=== PATIENT | male | born 1960 | race Caucasian/White ===

== ENCOUNTER 2018-06-27 09:42 | Emergency (ER) | payer MEDICAID, OTHER ==
[~2018-06-27] VITALS: Ht 172.7 cm; Wt 75.0 kg
[~2018-06-27 09:42] MED LIST: CLIN300C10 PO; HYDR-3498 PO; IBUP-1542 PO
[2018-06-27 09:47] VITALS: BP 158/78; PULSE 87; RESP 18; Ht 172.7 cm; Wt 75.0 kg
--- NOTE | 2018-06-27 09:49 | ERD ---
ER Documentation Chief Complaint Chief Complaint HPI This is a 57-year-old male that presents to the emergency department complaining of lower back pain. The patient is under custody. Indicates the back pain is been present since he was arrested and indicated the [employer] police officer stepped on his back. He denies any numbness or tingling of his lower extremities. He states the pain is exacerbated by movement. He states that 6 out of 10 in in tensity. He does have a history of sciatica but states this pain is different. He denies any changes in his bladder or bowel frequency. He has had no fevers no shaking no chills. Has been able to ambulate without any difficulty. ROS All systems reviewed and are negative except as per history of present illness. Medications Home Meds Active Scripts Hydrocodone Bit-Acetaminophen* (Townsend*) 5-325 Mg Tab, 1 TAB PO Q6 PRN for PAIN, #10 TAB Prov:CHO,[place]UST[place] 10/02/14 Ibuprofen* (Motrin*) 600 Mg Tab, 600 MG PO Q6H PRN for PAIN LEVEL 1-5, #15 TAB Prov:CHO,[place] 10/02/14 Clindamycin Hcl* (Clindamycin Hcl*) 300 Mg Capsule, 300 MG PO Q6 for 7 Days, CAP Prov:CHO,[place] 10/02/14 Allergies Allergies: Coded Allergies: Penicillins (Verified Allergy, Unknown, 10/02/14) PMhx/Soc Hx Alcohol Use: No Hx Substance Use: No Hx Tobacco Use: No Physical Exam Physical Exam Constitutional:Well-developed. Well-nourished. HEENT:Normocephalic. Atraumatic.Pupils were equal round reactive to light. Moist mucous membranes.No tonsillar exudates. Neck: No nuchal rigidity. No lymphadenopathy. No posterior cervical spine tenderness or step-offs. Respiratory: Not using accessory muscles of respiration.Lungs were clear to auscultation bilaterally. No rhonchi. No rales. No wheezing. Cardiovascular: Regular rate regular rhythm.No murmurs. No rubs were appreciated.S1, S2 normal. Distal pulses are palpable 2+ bilaterally. GI: Abdomen was soft. Nontender. Non Distended. No pulsatile abdominal masses or bruits. No rebound. No guarding. Bowel sounds were present and normal. Muscle skeletal: Full range of motion of both the upper and lower extremities bilaterally.Normal muscle tone.No assymetrical calf tenderness or swelling. No tenderness with palpation or percussion of the thoracic or lumbar spinous processes. Lower extremities are of equal length and symmetrical with no internal/external rotation. Bilateral paralumbar tenderness over L4-L5 with no ecchymosis Skin: No petechia, no purpura. No lesions on the palms or the soles of the feet. No maculopapular rash. NEURO: Patient was alert, awake, orientated x3.No facial droop. Gait observed and normal with no ataxia.Speech had regular rate and rhythm. No focal neurological deficits. Results 24 hrs Current Medications Medications Dose Sig/Millie Start Time Status Last (Trade) Ordered Route PRN Stop Time Admin Dose Reason Admin 350 mg ONCE ONCE 06/27/18 Carisoprodol PO 10:00 (Soma) 06/27/18 10:01 Procedures/MDM The patient presented to the emergency department with back pain. My differential diagnosis included but was not limited to spinal origins of the pain such as fracture, osteomyelitis, epidural abscess, neoplasm, spondylolishtesis, discogenic, cauda equina syndrome or musculoligamentous. Nonspinal causes such as AAA, upper UTI, renal colic, aortic dissection, abdominal neoplasm were also considered as an etiology into their pain. I did feel the patient's pain was likely muscle skeletal. There is no physical exam findings or signs and symptoms to suggest a fracture. I do not feel any radiographic imaging was required. The patient was requesting Soma and this was provided to the patient. He was medically cleared for care home clearance at this time by myself. Departure Diagnosis: Primary Impression: Low back pain Chronicity: acute Back pain laterality: bilateral Sciatica presence: without sciatica Qualified Codes: M54.5 - Low back pain Condition: Fair EDGAR COLIN MD Jun 27, 2018 09:49
[2018-06-27] MEDS ORDERED: CARISOPRODOL 350 MG TAB PO ONE (10:00)
== END 2018-06-27 10:10 | disposition home or self-care (01) ==
LOC: E/R 09:42
DX: M54.5 Low back pain (principal)
CPT/HCPCS: 99283